=== PATIENT | male | born 1985 | race Hispanic/Latino ===

== ENCOUNTER 2024-12-30 06:51 | Day surgery (SDC) | payer BC ==
[2024-12-26 08:57] LABS: IMMATURE GRANULOCYTE ABSOLUTE 0.01 K/uL (0-1); NUCLEATED RED BLOOD CELLS 0.0 % (0.0-0.19); PLATELET COUNT (AUTO) 190 K/uL (130-400); RED BLOOD CELL COUNT(AUTO) 5.97 MIL/uL (4.50-6.20); RED CELL DISTRIBUTION WIDTH 12.7 % (11.0-15.5); WHITE BLOOD COUNT (AUTO) 7.1 K/uL (4.8-10.8)
[2024-12-26 09:31] VITALS: BP 151/98; PULSE 72; RESP 18; TEMP 97.5
[2024-12-30] VITALS (16 sets, daily range): BP systolic 123–150; BP diastolic 77–105; PULSE 73–89; RESP 14–20; TEMP 97–97.6
[~2024-12-30] VITALS: Ht 172.7 cm; Wt 94.9 kg
[~2024-12-30 06:51] MED LIST: TEST200V21 IM
[2024-12-30] MEDS ORDERED: LACTATED RINGERS 1000ML 1,000 ML IV ONE (07:30)
[2024-12-30] MEDS ORDERED: GLYCOPYRROLATE 0.2 MG/ML 5 ML VIAL ONE (08:30)
[2024-12-30] MEDS ORDERED: LIDOCAINE HCL MPF 1% 5ML VIAL ONE (08:30)
[2024-12-30] MEDS ORDERED: NEOSTIGMINE METHYLSULFATE 1MG/ML IV ONE (08:31)
[2024-12-30] MEDS ORDERED: MIDAZOLAM HCL 1 MG/ML 2ML VIAL ONE (08:31)
--- NOTE | 2024-12-30 10:04 | OP ---
Operative Note: DATE OF PROCEDURE: 12/30/24 SURGEON: MARITZA MARQUIS MD EMERGENCY REGISTRAR: [] ANESTHESIA: [] General ANESTHESIOLOGIST/CONTINUOUS IMPROVEMENT DIRECTOR: [] PREOPERATIVE DIAGNOSIS: [] Incarcerated umbilical hernia POSTOPERATIVE DIAGNOSIS: [] The same SYNOPSIS: [] PROCEDURE: [] Repair of incarcerated umbilical hernia ESTIMATED BLOOD LOSS: [] None INDICATIONS: [] DESCRIPTION OF PROCEDURE: [] With the patient prepped in the usual fashion infraumbilical incision was done. Using blunt and cautery dissection I was able to identify an incarcerated umbilical hernia. The sac was opened and I was able to ring omentum that was incarcerated. I was able to identify the edges of the fascia and it was a very small defect less than 2 cm. I remove the omentum and sac and sent to pathology. The hernia was closed with a couple of interrupted 2-0 Prolene sutures. I approximated the umbilicus to the fascia and then placed the subcutaneous sutures with a Vicryl. The umbilical fascia was also done with 2-0 Vicryl. The incision was closed with 4-0 Monocryl and Dermabond. We placed 20 cc of local anesthesia. A binder will be placed the patient MARITZA MARQUIS MD Dec 30, 2024 10:04
--- NOTE | 2024-12-30 11:26 | NUR ---
Full and complete discharge instructions given to Patient and Family both verbally and in writing. Explained Surgical procedure precautions and follow up. Open Umbilical incision sites clean dry and intact. No evidence of bleeding, bruising or hematoma. Abdominal binder intact. All questions answered. PIV removed with catheter tip intact. Family at bedside appearing supportive. W/C to POV with Family to home
== END 2024-12-30 11:50 | disposition home or self-care (01) ==
LOC: DAH 06:51
PROVIDERS: ATTEND Surgery
DX: K42.0 Umbilical hernia with obstruction, without gangrene (principal)
CPT/HCPCS: 85025; 36415; 49592; 88302; J1100; A4223 ×2; A4600; A6260; A4663; J7120; J3010 ×2; J0665; J3490 ×4; J2250; J2704; J2405; J2710; J2795; J0690 ×2; A4930; A4215; A4213; A4222; A4221; A4216; A4450